=== PATIENT | female | born 1965 | race Asian ===

== ENCOUNTER 2017-01-07 09:18 | Outpatient (CLI) | payer OTHER | END 2017-01-07 10:20 | disposition home or self-care (01) | LOC: MAMMO 09:18 | DX: Z12.31 Encounter for screening mammogram for malignant neoplasm of breast (principal) | CPT/HCPCS: G0202-TC ==

== ENCOUNTER 2017-08-13 08:41 | Outpatient (CLI) | payer OTHER | END 2017-08-13 18:13 | disposition home or self-care (01) | LOC: US 08:41 | DX: R10.2 Pelvic and perineal pain (principal) ==

== ENCOUNTER 2018-09-29 07:17 | Day surgery (SDC) | payer OTHER ==
[~2018-09-29] VITALS: Ht 30.5 cm; Wt 0.5 kg
[2018-09-29 08:32] LABS: PLATELET COUNT 213 K/uL (152-353)
[2018-09-29 09:03] LABS: POTASSIUM 3.7 mmol/L (3.6-5.2)
== END 2018-09-29 11:26 | disposition home or self-care (01) ==
LOC: OR 07:17
PROVIDERS: Student in an Organized Health Care Education/Training Program
PROC: 0DJD8ZZ Inspection of Lower Intestinal Tract, Via Natural or Artificial Opening Endoscopic (ICD-10-PCS; principal; 2018-09-29)
DX: Z12.11 Encounter for screening for malignant neoplasm of colon (principal)
CPT/HCPCS: 80053; 85027; J2001; J2250; J2405; J2704; J3490

== ENCOUNTER 2019-12-08 07:34 | Outpatient (CLI) | payer OTHER | END 2019-12-08 20:21 | disposition home or self-care (01) | LOC: RAD 07:34 | DX: J41.0 Simple chronic bronchitis (principal) ==

== ENCOUNTER 2021-05-09 09:11 | Outpatient (CLI) | payer OTHER | END 2021-05-09 20:12 | disposition home or self-care (01) | LOC: RAD 09:11 | PROVIDERS: ATTEND Physician Assistant | DX: J41.0 Simple chronic bronchitis (principal) ==

== ENCOUNTER 2022-05-15 07:06 | Outpatient (CLI) | payer OTHER | END 2022-05-15 20:12 | disposition home or self-care (01) | LOC: RAD 07:06 | PROVIDERS: ATTEND Internal Medicine Pulmonary Disease | DX: J45.909 Unspecified asthma, uncomplicated (principal) ==